=== PATIENT | female | born 1970 | race Two or more races ===

== ENCOUNTER 2021-09-05 14:08 | Emergency (ER) | payer MEDICAID, OTHER ==
[~2021-09-05] VITALS: Ht 152.4 cm; Wt 69.9 kg
[2021-09-05 14:11] VITALS: BP 118/77
--- NOTE | 2021-09-05 14:15 | NUR ---
PT AMBULATED TO BED, STEADY GAIT
--- NOTE | 2021-09-05 14:20 | NUR ---
50 Y/O FEMALE BIB SELF C/O HEADACHES, RIGHT FLANK PAIN, FREQUENT URINATION, CHILLS AND VOMITING SINCE YESTERDAY. PT STATES 8/10 SHARP CONSTANT PAIN. TOOK ADVIL WITH SOME RELIEF. ABD SOFT, TENDER TO TOUCH. MEDHX: DENIES NKA
--- NOTE | 2021-09-05 14:24 | NUR ---
DR GARCIA AT BEDSIDE EXAMINING PT
[2021-09-05] MEDS ORDERED: NACL 0.9% 1,000 ML IV ONE (14:30)
[2021-09-05] MEDS ORDERED: ONDANSETRON 4 MG/2 ML VIAL IVP ONE (14:30)
[2021-09-05] MEDS ORDERED: KETOROLAC 30 MG/ML VIAL IVP ONE (14:30)
--- NOTE | 2021-09-05 15:03 | NUR ---
PT TAKEN TO CT SCAN VIA SHARYN
[2021-09-05 15:04] LABS: APPEARANCE,URINE CLEAR (CLEAR); BILIRUBIN,URINE NEGATIVE (NEGATIVE); BLOOD, URINE NEGATIVE (NEGATIVE); COLOR,URINE YELLOW (YELLOW); LEUKOCYTE ESTERASE ,URINE NEGATIVE (NEGATIVE); NITRITE, URINE NEGATIVE (NEGATIVE); PH,URINE 5.5 (5.0-9.0); UGLUCOSE NEGATIVE (NEGATIVE)
[2021-09-05 15:06] LABS: BASOPHILS # (AUTO) 0.1 K/uL (0.00-0.22); BASOPHILS % (AUTO) 0.7 % (0.0-2.0); EOSINOPHILS # (AUTO) 0.1 K/uL (0-0.4); EOSINOPHILS % (AUTO) 1.4 % (0.0-4.0); HEMATOCRIT 38.4 % (36-48); HEMOGLOBIN 12.9 g/dL (12.0-16.0); LYMPHOCYTES # (AUTO) 2.6 K/uL (2.5-16.5); LYMPHOCYTES % (AUTO) 32.2 % (20.5-51.1); MEAN CORPUSCULAR HEMOGLOBIN 29 pg (27-31); MEAN CORPUSCULAR HGB CONC 34 g/dL (33-37); MEAN CORPUSCULAR VOLUME 86.1 fL (80-94); MONOCYTES # (AUTO) 0.4 K/uL (0.8-1.0); MONOCYTES % (AUTO) 5.4 % (1.7-9.3); NEUTROPHILS # (AUTO) 4.8 K/uL (1.8-7.7); NEUTROPHILS % (AUTO) 60.3 % (42.2-75.2); PLATELET COUNT (AUTO) 251 K/uL (140-450); RED BLOOD CELL COUNT(AUTO) 4.46 MIL/uL (4.20-5.40); RED CELL DISTRIBUTION WIDTH 14.9 % (11.6-13.7); WHITE BLOOD COUNT (AUTO) 7.9 K/uL (4.8-10.8)
--- NOTE | 2021-09-05 15:11 | NUR ---
PT RETURNED FROM CT SCAN
[2021-09-05 15:28] LABS: ALBUMIN 3.9 g/dL (3.4-5.0); ANION GAP 15.1 (8-16); CREATININE 0.6 mg/dL (0.6-1.3); POTASSIUM 4.1 mmol/L (3.5-5.1); TOTAL BILIRUBIN 0.3 mg/dL (0.0-1.0)
[2021-09-05] MEDS ORDERED: IBUP-2213 PO (15:51)
[2021-09-05] MEDS ORDERED: BEN10 PO (15:51)
[2021-09-05] MEDS ORDERED: ACET-8386 PO (16:26)
[2021-09-05 16:45] VITALS: BP 108/63
--- NOTE | 2021-09-05 16:45 | NUR ---
Patient discharged with v/s stable. Written and verbal after care instructions given and explained. Patient alert, oriented and verbalized understanding of instructions. Ambulatory with steady gait. All questions addressed prior to discharge. ID band removed. Patient advised to follow up with PMD. Rx of BENTYL, IBUPROFEN, AND HYDROCODONE given. Patient educated on indication of medication including possible reaction and side effects. Opportunity to ask questions provided and answered.
== END 2021-09-05 16:45 | disposition home or self-care (01) ==
LOC: MED 14:08
DX: R11.2 Nausea with vomiting, unspecified (principal); R10.9 Unspecified abdominal pain
CPT/HCPCS: 36415; 74176; 80053; 81003; 81025; 83690; 85025; 96361; 96374; 96375; 99284; J1885; J2405; J7030

== ENCOUNTER 2022-01-13 12:42 | Emergency (ER) | payer OTHER ==
[~2022-01-13] VITALS: Ht 149.9 cm; Wt 72.6 kg
[~2022-01-13 12:42] MED LIST: ACET-8386 PO; BEN10 PO; IBUP-2213 PO
[2022-01-13 13:03] VITALS: BP 118/76
--- NOTE | 2022-01-13 13:06 | NUR ---
PT TO AWAIT IN LOBBY
--- NOTE | 2022-01-13 13:10 | NUR ---
51 Y/O F C/O RT KNEE PAIN XY. 06/26 PAIN. PT DENIES ANY RECENT TRAUMA OR INJURY. MEDHX: DENIES NKA
[2022-01-13] MEDS ORDERED: KETOROLAC 30 MG/ML VIAL IM ONE (15:05)
[2022-01-13] MEDS ORDERED: DICL50EC11 PO (15:11)
[2022-01-13 15:36] VITALS: BP 111/72
--- NOTE | 2022-01-13 15:38 | NUR ---
Patient discharged with v/s stable. Written and verbal after care instructions given and explained. Patient alert, oriented and verbalized understanding of instructions. Ambulatory with steady gait. All questions addressed prior to discharge. ID band removed. Patient advised to follow up with PMD. Rx of DICLOFENAC given. Patient educated on indication of medication including possible reaction and side effects. Opportunity to ask questions provided and answered.
== END 2022-01-13 15:38 | disposition home or self-care (01) ==
LOC: MED 12:42
DX: M17.11 Unilateral primary osteoarthritis, right knee (principal); Z79.891 Long term (current) use of opiate analgesic; Z79.1 Long term (current) use of non-steroidal anti-inflammatories (NSAID); Z79.899 Other long term (current) drug therapy
CPT/HCPCS: 73562; 96372; 99283; J1885

== ENCOUNTER 2022-05-25 16:59 | Emergency (ER) | payer OTHER ==
[~2022-05-25] VITALS: Ht 147.3 cm; Wt 71.2 kg
[~2022-05-25 16:59] MED LIST changes: +DICL50EC11 PO
[2022-05-25 17:15] VITALS: BP 115/74
--- NOTE | 2022-05-25 18:36 | NUR ---
KAELYN Daly examining patient.
--- NOTE | 2022-05-25 19:07 | NUR ---
[facility] ATTEMPTED TO BRING PT BACK, NOT FOUND IN LOBBY/OUTSIDE
--- NOTE | 2022-05-25 19:16 | NUR ---
Communications Station Manager called - no show in lobby and outside.
--- NOTE | 2022-05-25 21:21 | NUR ---
PATIENT ELOPED FROM FACILITY. DISCHARGE INSTRUCTIONS NOT GIVEN TO PATIENT. DR. De Guzman NOTIFIED.
== END 2022-05-25 21:21 | disposition left against medical advice (07) ==
LOC: MED 16:59
DX: G89.29 Other chronic pain (principal); M25.561 Pain in right knee; M25.562 Pain in left knee; M19.90 Unspecified osteoarthritis, unspecified site; Z79.899 Other long term (current) drug therapy; Z79.1 Long term (current) use of non-steroidal anti-inflammatories (NSAID); Z79.891 Long term (current) use of opiate analgesic
CPT/HCPCS: 99281

== ENCOUNTER 2023-05-23 12:59 | Emergency (ER) | payer OTHER ==
[~2023-05-23] VITALS: Ht 147.3 cm; Wt 68.9 kg
[~2023-05-23 12:59] MED LIST changes: -ACET-8386 PO; +ACET-8905 PO
[2023-05-23 13:18] VITALS: BP 100/59; PULSE 78; RESP 18; TEMP 97.9; O2SAT 96
[2023-05-23] MEDS ORDERED: KETOROLAC 30 MG/ML VIAL IM ONE (14:25)
[2023-05-23] MEDS ORDERED: CYCL-711 PO (16:33)
[2023-05-23] MEDS ORDERED: LID5T TP (16:33)
[2023-05-23] MEDS ORDERED: NAPR-1704 PO (16:33)
[2023-05-23] MEDS ORDERED: CEPH-588 PO (16:36)
[2023-05-23 16:52] VITALS: BP 110/62; PULSE 78; RESP 18; TEMP 98; O2SAT 98
== END 2023-05-23 16:52 | disposition home or self-care (01) ==
LOC: MED 12:59
DX: N39.0 Urinary tract infection, site not specified (principal); G56.00 Carpal tunnel syndrome, unspecified upper limb; Z79.899 Other long term (current) drug therapy
CPT/HCPCS: 72110; 96372; 99283; J1885

== ENCOUNTER 2024-04-07 20:52 | Emergency (ER) | payer OTHER ==
[~2024-04-07] VITALS: Ht 149.9 cm; Wt 67.1 kg
[~2024-04-07 20:52] MED LIST changes: +CEPH-588 PO; +NAPR-1704 PO
[2024-04-07 21:45] VITALS: BP 115/78; PULSE 77; RESP 18; TEMP 98.7; O2SAT 97
[2024-04-07] MEDS ORDERED: KETOROLAC 30 MG/ML VIAL IVP ONE (22:50)
[2024-04-07] MEDS ORDERED: IBUP-2218 PO (22:51)
[2024-04-07] MEDS ORDERED: ACET-8905 PO (22:51)
[2024-04-07] MEDS ORDERED: HYDR-5071 PO (22:54)
[2024-04-07] MEDS: KETOROLAC 30 MG/ML VIAL IM ONE (23:13)
== END 2024-04-08 00:20 | disposition home or self-care (01) ==
LOC: MED 20:52
DX: S52.501A Unspecified fracture of the lower end of right radius, initial encounter for closed fracture (principal); Z79.1 Long term (current) use of non-steroidal anti-inflammatories (NSAID); Z79.899 Other long term (current) drug therapy; W18.39XA Other fall on same level, initial encounter; Y93.89 Activity, other specified; Y92.89 Other specified places as the place of occurrence of the external cause; Y99.8 Other external cause status
CPT/HCPCS: 29125; 73110; 96372; 99283; J1885